=== PATIENT | male | born 1995 | race Caucasian/White ===

== ENCOUNTER 2020-06-27 18:39 | Emergency (ER) | payer OTHER, SELFPAY ==
[2020-06-27 18:48] VITALS: BP 183/95; PULSE 101; RESP 20; TEMP 36.2; O2SAT 98
--- NOTE | 2020-06-27 19:19 | ED.WOUNDLAC ---
HPI - Wound/Laceration General Chief Complaint: Wound/Laceration Stated Complaint: Right hand lac Time Seen by Provider: 06/27/20 19:10 Source: patient and RN notes reviewed Mode of arrival: ambulatory Limitations: no limitations History of Present Illness HPI narrative: 24-year-old male who presents to [facility] care with complaints of laceration to thenar web of right hand. Patient states that he was walking out to grill and slipped on the steps. Patient states that he is unsure what he cut his hand on. He states that he had tongs in his right hand and doesn't know if that is what he cut hand with or if he cut it trying to break his fall. 1cm laceration minimally into subcutaneous tissue, no acute active bleeding noted with mobility intact to his right thumb and index finger with no complaints of tingling or numbness to right hand. Onset (ago): minute(s) (within past 30 minutes) Location: other (Right hand) Extremity Location: Right: hand Place: home Patient tetanus UTD: Yes (states that he thinks is UTD refused to have today) Context: accidental Associated symptoms: none Treatments prior to arrival: bandage Related Data Allergies Allergy/AdvReac Type Severity Reaction Status Date / Time No Known Allergies Allergy Verified 06/27/20 19:42 Review of Systems Review of Systems: Narrative: CONSTITUTIONAL: Denies fever, chills, or sweats. EYES: Denies visual changes, redness, or discharge. ENT: Denies rhinorrhea, congestion, sore throat, or otalgia. CARDIOVASCULAR: Denies chest pain, palpitations, or edema. RESPIRATORY: Denies cough or dyspnea. GASTROINTESTINAL: Denies abdominal pain, nausea, vomiting, or diarrhea. GENITOURINARY: Denies dysuria or hematuria. SKIN: Denies rash or itching.laceration 1cm to thenar web of right hand MUSCULOSKELETAL: Denies back pain, joint pain, or myalgia. NEUROLOGIC: Denies headache, numbness, or weakness. PSYCHIATRIC: Denies anxiety or depression. All systems reviewed & are unremarkable except as noted in HPI and below PMFSH Past Medical History Medical History (Updated 06/30/20 @ 08:31 by Ghislaine Bui NP) GERD (gastroesophageal reflux disease) Hypoglycemia Surgical History Surgical History (Updated 06/27/20 @ 19:22 by Ghislaine Bui NP) S/P right knee arthroscopy S/P wisdom tooth extraction Social History Social History (Updated 06/30/20 @ 08:26 by Ghislaine Bui NP) Smoking status: Never smoker Alcohol intake: unknown Substance use: unknown Living arrangements: with family Gender identity (if verbalized by the patient): Male Comments At time of signature, agree with nursing past medical, surgical, social history. There is no relevant family history pertinent to the presenting complaint Exam Narrative: Exam Narrative: GENERAL: Well-appearing, well-nourished, and in no acute distress. HEAD: Normocephalic, atraumatic. EYES: PERRLA and EOMI. ENT: Nares clear, no rhinorrhea or epistaxis. Mucous membranes moist. NECK: Supple. CHEST: Clear to auscultation. No respiratory distress. HEART: Regular rate and rhythm. No murmur heard. Normal peripheral pulses. ABDOMEN: Soft, nontender, nondistended, normal active bowel sounds. EXTREMITIES: Normal range of motion. No edema. SKIN: Warm, dry, no rash.Laceration 1cm length to the thenar web of right hand bleeding controlled, mobility intact to all digits of right hand, no tingling or numbness to right hand or fingers, strong right radial pulse. NEURO: No focal deficits. Alert and oriented x3. Course Vital Signs Vital signs: Vital Signs Temperature 36.2 C L 06/27/20 18:48 Pulse Rate 101 H 06/27/20 18:48 Respiratory Rate 06/27/20 18:48 Blood Pressure 183/95 H 06/27/20 18:48 Pulse Oximetry 98 06/27/20 18:48 Temperature 36.2 C L 06/27/20 18:48 Pulse Rate 101 H 06/27/20 18:48 Respiratory Rate 06/27/20 18:48 Blood Pressure 183/95 H 06/27/20 18:48 Pulse Oximetry 98 06/27/20 18:48 P
== END 2020-06-27 19:55 | disposition home or self-care (01) ==
PROVIDERS: Emergency Provider Registered Nurse
DX: S61.411A Laceration without foreign body of right hand, initial encounter (principal); W10.9XXA Fall (on) (from) unspecified stairs and steps, initial encounter; K21.9 Gastro-esophageal reflux disease without esophagitis
CPT/HCPCS: 12001; 99213; G0463